=== PATIENT | female | born 1965 | race Caucasian/White ===

== ENCOUNTER 2018-02-10 19:06 | Observation (INO) | payer MEDICARE, OTHER ==
[~2018-02-10] VITALS: Ht 165.1 cm; Wt 54.4 kg
[2018-02-10] MEDS ORDERED: clonazePAM 0.5 MG TAB PO ONE (20:30)
[2018-02-10 21:31] LABS: Basophils # (auto) 0.2 uL; Basophils % (auto) 1.2 % (0.0-2.0); Eosinophils # (auto) 0.3 uL; Eosinophils % (auto) 2.4 % (0.0-7.0); Hematocrit 43.5 % (36.0-46.0); Hemoglobin 14.6 g/dL (12.2-16.2); Lymphocytes # (auto) 3.4 uL; Lymphocytes % (auto) 25.2 % (10.0-50.0); Mean Corpuscular Hgb Conc. 33.6 g/dL (32.0-36.0); Mean Corpuscular Volume 92.2 fL (80.0-100.0); Monocytes # (auto) 0.8 uL; Monocytes % (auto) 5.6 % (0.0-12.0); Neutrophils # (auto) 8.9 uL; Neutrophils % (auto) 65.6 % (37.0-80.0); Nucleated Red Blood Cells % 0.1 %; Platelet Count (auto) 270 10^3/uL (140-450); Red Blood Cells 4.71 10^6/uL (4.0-5.20); Red Cell Distribution Width 14.3 % (11.8-14.3); White Blood Cell 13.6 10^3/uL (4.4-10.8)
[2018-02-10 22:23] LABS: BUN/Creatinine Ratio 18.8; Bilirubin, Total 0.2 mg/dL (0.2-1.0); Calcium 8.8 mg/dL (8.5-10.1); Potassium 3.9 mmol/L (3.5-5.1); Total Protein 7.6 g/dL (6.4-8.2)
[2018-02-10 22:51] VITALS: BP 116/66
== END 2018-02-10 22:55 | disposition home or self-care (01) | DRG 101 ==
LOC: ER 19:16 → OVERFLOW 19:17 → ER 22:55
PROVIDERS: ADMIT Family Medicine; ATTEND Family Medicine
DX: G40.909 Epilepsy, unspecified, not intractable, without status epilepticus (principal); K21.9 Gastro-esophageal reflux disease without esophagitis; Z82.49 Family history of ischemic heart disease and other diseases of the circulatory system
CPT/HCPCS: 36415; 71045; 80053; 82542; 83735; 85025; 93005; 99285; G0378

== ENCOUNTER 2018-02-22 11:13 | Emergency (ER) | payer MEDICARE ==
[~2018-02-22] VITALS: Ht 177.8 cm; Wt 70.3 kg
[2018-02-22 11:21] VITALS: BP 122/77
[2018-02-22] MEDS ORDERED: clonazePAM 0.5 MG TAB PO ONE (12:30)
== END 2018-02-22 12:37 | disposition home or self-care (01) ==
LOC: ER 11:13
DX: G40.909 Epilepsy, unspecified, not intractable, without status epilepticus (principal); K21.9 Gastro-esophageal reflux disease without esophagitis; Z76.0 Encounter for issue of repeat prescription; Z90.49 Acquired absence of other specified parts of digestive tract